=== PATIENT | male | born 1965 | race Caucasian/White ===

== ENCOUNTER 2016-05-07 06:48 | Day surgery (SDC) | payer OTHER ==
[2016-05-06 12:48] VITALS: BMI 35.0
[~2016-05-07] VITALS: Ht 182.9 cm; Wt 118.2 kg
[~2016-05-07 06:48] MED LIST: LACTATED RINGER'S 1000ML 1,000 ML IV SCH
[2016-05-07 07:10] VITALS: BP 121/73; PULSE 60; TEMP 37; O2SAT 95; Ht 182.9 cm; Wt 118.2 kg
[2016-05-07] MEDS ORDERED: NAPR1TAB9 PO (07:19)
[2016-05-07] MEDS ORDERED: [UNRECOGNIZED DRUG - REMARK] PO (07:19)
[2016-05-07 07:20] LABS: BASO % 0.6 %; BASO ABS # 0.03 K/uL (0-0.2); EOS % 1.9 %; HEMATOCRIT 43.5 % (42-52); IG% 0.2 %; LYMPH % 46.4 %; LYMPH ABS # 2.48 K/uL (1.2-3.4); MEAN CELL VOLUME 88.4 fL (80-100); MEAN CORPUSCULAR HEMOGLOBIN 32.5 pg (25-34); MEAN PLATELET VOLUME 12.7 fL (7.4-10.4); MONO % 5.6 %; NEUT % 45.3 %; PLATELET COUNT 144 K/uL (130-400); RED BLOOD COUNT 4.92 M/uL (4.7-6.1); WHITE BLOOD COUNT 5.34 K/uL (4.8-10.8)
[2016-05-07 07:22] LABS: COMPLETE YES; MEAN CORPUSCULAR HGB CONC 36.8 g/dl (32-36)
[2016-05-07 07:45] LABS: CREATININE 0.99 mg/dl (0.60-1.40); POTASSIUM 4.3 mmol/L (3.5-5.1)
[2016-05-07] MEDS ORDERED: NEOSTIGMINE METHYLSULFATE 5 MG/5 ML SYR ONE (07:58)
[2016-05-07] MEDS ORDERED: GLYCOPYRROLATE INJ 0.2 MG/ML VIAL ONE (07:58)
[2016-05-07] MEDS ORDERED: FENTANYL CITRATE INJ 50 MCG/1 ML 2 ML VIAL ONE ×2 (07:58→08:17)
[2016-05-07] MEDS ORDERED: DEXAMETHASONE SOD INJ 4 MG/ML VIAL ONE (07:58)
[2016-05-07] MEDS ORDERED: PROPOFOL IV EMULSION 10 MG/ML 20 ML VIAL IV ONE (07:58)
[2016-05-07] MEDS ORDERED: LIDOCAINE HCL 2% 2 ML VIAL (20MG/ML) ONE (07:58)
[2016-05-07] MEDS ORDERED: MIDAZOLAM HCL 1 MG/ML 2ML VIAL ONE (07:58)
[2016-05-07] MEDS ORDERED: ONDANSETRON INJ 2 MG/ML 2 ML VIAL ONE (07:58)
[2016-05-07] MEDS ORDERED: SUCCINYLCHOLINE CHLORIDE 20 MG/ML 10 ML VIAL IV ONE (09:27)
[2016-05-07] MEDS ORDERED: CEFAZOLIN SOD 1 GM VIAL ONE ×3 (09:27→10:09)
--- NOTE | 2016-05-07 09:36 | History & Physical Bridge Note ---
H&P Re-Evaluation Bridge Note: I have examined the patient, reviewed the History & Physical and in the interval since the performance of the History & Physical I have noted the following changes of clinical significance: No changes notedpt marked no one at bedside
[2016-05-07] MEDS ORDERED: BUPIVACAINE/EPINEPHRINE 0.5% MPF 1:200,000 30 ML VIAL INJ ONE (11:02)
--- NOTE | 2016-05-07 11:06 | [facility] Post Operative Brief Note ---
Immediate Operative Summary Operative Date May 07, 2016. Pre-Operative Diagnosis Recurrent umbilical hernia Post-Operative Diagnosis multiple at least 5 incacerated inc and ventral hernia Procedure(s) Performed primary closure, resection incarcerated omentum and marlex mesh onlay repair Surgeon Dr. Venkat Maya Account Installation Specialist Surgeon(s) none Estimated Blood Loss 10cc Findings at least 5 incisional and ventral hernia Specimens incaecerated fat Drains #15 savita per stab Anesthesia .5% marcaine wirh epi(10cc) and general
[2016-05-07] MEDS ORDERED: LACTATED RINGER'S 1000ML 1,000 ML IV SCH (11:07)
[2016-05-07] MEDS ORDERED: ALBUTEROL HFA INHALER 8.5 GM INH ONE (11:09)
[2016-05-07] MEDS ORDERED: OXYC-57 PO (11:10)
--- NOTE | 2016-05-07 11:12 | Discharge Instructions ---
Discharge Instructions Visit Reason for Visit: Recurrent Supraumbilical Hernia Discharge Goals Goal(s): Decrease discomfort Activity Recommendations Lifting Limitations: no more than 10 pounds (for one week) Exercise/Sports Limitations: none May Resume Sexual Activity: when tolerated Shower/Bathe: tomorrow Driving or Machine Use: resume 3 days after discharge (do not take rx pain meds when driving) Anesthesia . Post Anesthesia Instructions: If you have had General Anesthesia or IV Sedation: * Do not drive today. * Resume driving when surgeon permits. * Do not make important decisions or sign legal documents today. * Call surgeon for: 1. Temperature elevations greater than 101 degrees F. 2. Uncontrollable pain. 3. Excessive bleeding. 4. Persistent nausea and vomiting. 5. Medication intolerance (nausea, vomiting or rash). * For nausea and vomiting use only clear liquids such as: tea, soda, bouillon until nausea subsides, then gradually increase diet as tolerated. * If you have any concerns or questions, call your surgeon's office. If physician is unavailable and it is an emergency, call 911 or go to the nearest emergency room. . Instructions / Follow-Up Instructions / Follow-Up reestablish suction drain as needed return office on for drain removal Diet Recommendations Recommended Home Diet: no limitations Procedures Procedures Performed: primary closure, resection incarcerated omentum and marlex mesh onlay repair Medical Emergencies . Who to Call and When: Medical Emergencies: If at any time you feel your situation is an emergency, please call 911 immediately. . Non-Emergent Contact Non-Emergency issues call your: Surgeon ([phone]) . . "Provider Documentation" section prepared by Venkat Maya.
[2016-05-07] MEDS ORDERED: HYDROmorphone INJ 2 MG/ML SYR/VIAL IV PRN (11:15)
[2016-05-07] MEDS ORDERED: OXYCODONE/ACETAMINOPHEN 5-325 TAB PO PRN (11:15)
[2016-05-07] MEDS ORDERED: ONDANSETRON INJ 2 MG/ML 2 ML VIAL IV PRN ×2 (11:15→11:30)
[2016-05-07] MEDS ORDERED: EpHEDrine SULFATE INJ 50 MG/ML AMP IV PRN (11:30)
[2016-05-07] MEDS ORDERED: PROMETHAZINE HCL INJ 12.5 MG in SODIUM CHLORIDE 0.9% 50ML 50 ML IV PRN (11:30)
[2016-05-07] MEDS ORDERED: HYDROmorphone INJ 1 MG/ML SYR IV PRN (11:30)
[2016-05-07] MEDS ORDERED: LABETALOL HCL IV 5 MG/ML 20ML IV PRN (11:30)
[2016-05-07] MEDS ORDERED: ATROPINE SULFATE 0.1 MG/ML 5ML SYR IV PRN (11:30)
[2016-05-07] MEDS ORDERED: FLUMAZENIL 0.1 MG/1 ML 10 ML VIAL IV PRN (11:30)
[2016-05-07] MEDS ORDERED: NALOXONE HCL 0.4 MG/1 ML VIAL/CARP IV PRN (11:30)
[2016-05-07] MEDS ORDERED: HYDROmorphone INJ 0.5 MG/0.5 ML SYR ONE (11:32)
--- NOTE | 2016-05-07 11:49 | Anesthesiology Progress Note ---
Anesthesia Post Op Note Date & Time May 07, 2016 at 11:49 Vital Signs Pain Intensity: 2 Vital Signs Past 12 Hours Date Time Temp Pulse Resp B/P Pulse Ox O2 Delivery O2 Flow Rate FiO2 05/07/16 11:45 36.2 59 12 117/72 94 Room Air 05/07/16 11:35 59 14 118/77 99 Mask 10 05/07/16 11:25 64 16 124/83 98 Mask 10 05/07/16 11:15 36.0 66 18 153/89 97 Mask 10 05/07/16 07:10 37 60 20 121/73 95 Room Air Notes Mental Status: alert / awake / arousable, participated in evaluation Pt Amnestic to Procedure: Yes Nausea / Vomiting: adequately controlled Pain: adequately controlled Airway Patency, RR, SpO2: stable & adequate BP & HR: stable & adequate Hydration State: stable & adequate Anesthetic Complications: no major complications apparent
[2016-05-07 11:58] VITALS: BP 103/66; PULSE 58; TEMP 37; O2SAT 94
--- NOTE | 2016-05-07 12:02 | OPERATIVE REPORT ---
DATE OF OPERATION: 05/07/2016 PREOPERATIVE DIAGNOSIS: Incarcerated supraumbilical incisional hernia. POSTOPERATIVE DIAGNOSIS: Incarcerated supraumbilical incisional and ventral hernia (multiple, at least 5 of them). PROCEDURE: Repair of incarcerated incisional hernia, resection incarcerated omentum, primary repair with onlay of Marlex mesh. SURGEON: Dr. Maya. OPERATION AND FINDINGS: SUMMARY: The patient was brought into the operating room theater. The abdomen was prepped with Betadine scrubbing solution and properly draped. The patient had a significant amount of fatty tissue in the supraumbilical area, an area where he had an incarcerated small bowel apparently radiographically and irreducible complete hernia. He had had a previous umbilical or supraumbilical hernia repaired years ago, was not sure if they used mesh or not. At this point, we made an incision through the old scar vertically above the umbilicus, deepened through subcutaneous tissue. We were met with significant amount of lobulated subcutaneous fat that appeared to be his natural tissue. As we dissected further and stayed pretty peripherally we were then able to get onto the abdominal wall and work ourself centrally and in doing so, we were able to identify that the patient had at least 5 separate protrusions in the ventral area and one in the supraumbilical area most likely related to a recurrent incisional hernia. We did not see any mesh per se. There may have been some scar tissue right in the umbilical tissue as we elevated it up and I was not sure if there was a piece of Marlex in that area. Having said this, these defects were 1-2 cm in maximum. We closed these primarily with #1 PDS, some linearly, some transversely without any significant tension, but then I elected to bring a sheet of Marlex mesh onto the field and onlaid it completely overlapping these areas by 2 cm or more. We onlaid it on top of the abdominal wall rectus fascia laterally, centrally the linea alba and scar tissue inferiorly. The portions that we had closed primarily, there was a few of them I outlined with a silk suture and then we used these areas to tack down right in the middle of the mesh as it laid on there. These were interrupted PDS sutures. The repair appeared to be quite solid but the patient had a significant amount of fatty tissue; therefore, I elected to drain the area with a Shahzad drain using a 15 taken out at the 5 o'clock position just lateral to the incision, left it in the cavity, attached to skin edges with 2-0 silk suture. The wound was closed in multiple layers of #2 Dexon suture where prior to this, we used local anesthetic on the abdominal wall. I used about 10 mL of 0.5% Marcaine plain. Wound was then closed with interrupted 2-0 Dexon subcuticularly and rolando for skin edges. Dressing was applied. The procedure was tolerated well by the patient. Estimated blood loss about 10 mL. The patient was taken to recovery room in good condition. I attest to the content of the Intraoperative Record and any orders documented therein. Any exceptio ns are noted below.
[2016-05-07] MEDS ORDERED: HYDROCODONE/ACETAMOPHEN 5/325MG TAB ONE (12:15)
[2016-05-07] MEDS ORDERED: OXYCODONE/ACETAMINOPHEN 5-325 TAB ONE (12:18)
[2016-05-07 12:25] VITALS: BP 104/68; PULSE 68; O2SAT 93
[2016-05-07 13:05] VITALS: BP 115/74; PULSE 66; TEMP 37.1; O2SAT 96
== END 2016-05-07 13:12 | disposition home or self-care (01) ==
LOC: C.ACU 06:48
PROVIDERS: ATTEND Surgery
DX: K42.9 Umbilical hernia without obstruction or gangrene (principal); K43.9 Ventral hernia without obstruction or gangrene; E66.9 Obesity, unspecified